=== PATIENT | female | born 1960 | race American Indian/Alaskan Native ===

== ENCOUNTER 2017-09-10 12:04 | Outpatient (CLI) | payer OTHER ==
--- NOTE | 2017-09-11 00:06 | Cat Scan Report ---
FINAL REPORT EXAM: CT NECK WO CON HISTORY: POLYP OF VOCAL CORD AND LARYNX TECHNIQUE: Routine axial imaging was obtained of the soft tissues of the neck without IV contrast with sagittal coronal reconstructions. There are no previous studies available for comparison. FINDINGS: The study is limited without IV contrast. Along the inferior aspect of the left true cord is a 4.6 mm polypoid lesion projecting centrally. There are no additional lesions involving the larynx. There is no evidence of adenopathy in any compartment of the neck. The airway appears normal. The parotid and submandibular glands appear normal. The retropharyngeal space appears normal. The thyroid gland appears normal. The lung apices reveal emphysematous changes. The skeletal structures reveal mild arthritic changes in the mid cervical spine. Along the skullbase the visualized sinuses and mastoid air cells are well pneumatized. IMPRESSION: 4.6 mm polypoid lesion projecting off the inferior aspect of the left true cord centrally. No evidence of lymphadenopathy or other acute process in the neck. Emphysematous changes in both lung apices.
== END 2017-09-10 12:05 | disposition home or self-care (01) ==
LOC: CT 12:04
PROVIDERS: ATTEND Otolaryngology
DX: J38.1 Polyp of vocal cord and larynx (principal); M47.892 Other spondylosis, cervical region
CPT/HCPCS: 70490